=== PATIENT | male | born 1965 | race Caucasian/White ===

== ENCOUNTER 2019-03-02 21:11 | Emergency (ER) | payer OTHER ==
--- NOTE | 2019-03-02 22:20 | EDPHYS ---
Physician Documentation [facility] Name: Neil Gilliland Age: 54 yrs Sex: Male : 1965 Arrival Date: 03/02/2019 Time: 21:14 Bed 9 Private MD: ED Physician Mat Cotton HPI: 03/02 22:16 This 54 yrs old Male presents to ER via Ambulatory with complaints of Hives, tw4 Itching. 22:16 The patient's rash thought to be caused by an unknown cause. The rash is located on the tw4 body diffusely. The rash can be described as macular, urticarial. Onset: The symptoms/episode began/occurred 3 day(s) ago. Associated signs and symptoms: Pertinent positives: itching, Pertinent negatives: burning sensation, difficulty breathing, fever, nausea, Pain swelling of lips, swelling of throat, swelling of tongue, vomiting, wheezing. Severity of symptoms: in the emergency department the symptoms have improved mildly. Treatment given at home: Benadryl, oral steroids, OTC lotion/cream steroid lotion/cream. The patient has not experienced similar symptoms in the past. 22:16 The patient has not recently seen a physician. 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 - Social history:: Smoking status: Patient uses tobacco products, smokes one-half pack cigarettes per day. - Ebola Screening: : No symptoms or risks identified at this time. ROS: 22:16 Constitutional: Negative for fever, chills, and weight loss, Eyes: Negative for injury, tw4 pain, redness, and discharge, Cardiovascular: Negative for chest pain, palpitations, and edema, Respiratory: Negative for shortness of breath, cough, wheezing, and pleuritic chest pain, Abdomen/GI: Negative for abdominal pain, nausea, vomiting, diarrhea, and constipation, Back: Negative for injury and pain, MS/Extremity: Negative for injury and deformity, Neuro: Negative for headache, weakness, numbness, tingling, and seizure. 22:16 Skin: Positive for rash, Negative for abrasions, abscesses, avulsion, burn, cellulitis, diaphoresis, discoloration, ecchymosis, erythema, hematoma. Exam: 22:16 Constitutional: This is a well developed, well nourished patient who is awake, alert, tw4 and in no acute distress. Head/Face: Normocephalic, atraumatic. Chest/axilla: Normal chest wall appearance and motion. Nontender with no deformity. No lesions are appreciated. Cardiovascular: Regular rate and rhythm with a normal S1 and S2. No gallops, murmurs, or rubs. Normal PMI, no JVD. No pulse deficits. Respiratory: Lungs have equal breath sounds bilaterally, clear to auscultation and percussion. No rales, rhonchi or wheezes noted. No increased work of breathing, no retractions or nasal flaring. Abdomen/GI: Soft, non-tender, with normal bowel sounds. No distension or tympany. No guarding or rebound. No evidence of tenderness throughout. Back: No spinal tenderness. No costovertebral tenderness. Full range of motion. MS/ Extremity: Pulses equal, no cyanosis. Neurovascular intact. Full, normal range of motion. Neuro: Awake and alert, GCS 15, oriented to person, place, time, and situation. Cranial nerves II-XII grossly intact. Motor strength 5/5 in all extremities. Sensory grossly intact. Cerebellar exam normal. Normal gait. 22:16 Skin: urticaria. Vital Signs: 21:30 BP 128 / 90; Pulse 57; Resp 16; Temp 98; Pulse Ox 97% on R/A; Weight 81.65 kg (R); ak1 Height 5 ft. 9 in. (175.26 cm) (R); Pain 2/10; 21:30 Body Mass Index 26.58 (81.65 kg, 175.26 cm) ak1 MDM: 21:35 Patient medically screened. tw4 22:16 Differential diagnosis: allergic reaction. Data reviewed: vital signs, nurses notes. tw4 Counseling: I had a detailed discussion with the patient and/or guardian regarding: the historical points, exam findings, and any diagnostic results supporting the discharge/admit diagnosis. Special discussion: I discussed with the patient/guardian in detail that at this point there is no indication for admission to the hospital. It is understood, however, that if the symptoms persist or worsen the patient needs to return immediately for re-evaluation. Administered Medications: 22:29 Drug: Benadryl 25 mg Route: PO; jd3 22:30 Follow up: Response: Medication administered at discharge. jd3 22:29 Drug: Pepcid 20 mg Route: PO; jd3 22:30 Follow up: Response: Medication administered at discharge. jd3 22:30 Drug: predniSONE 60 mg Route: PO; jd3 22:30 Follow up: Response: Medication administered at discharge. jd3 Disposition: 03/02/19 22:19 Discharged to Home. Impression: allergic reaction, Urticaria, unspecified. - Condition is Stable. - Discharge Instructions: Hives, Allergies, [id number]. - Prescriptions for Medrol (Tres) 4 mg Oral Tablets, Dose Pack - take 1 tablet by ORAL route as directed - follow package instructions; 1 packet. - Medication Reconciliation Form, Thank You Letter, Antibiotic Education, Prescription Opioid Use form. - Follow up: Private Physician; When: Upon discharge from the Emergency Department; Reason: If symptoms return, Recheck today's complaints, Continuance of care. - Problem is new. - Symptoms have improved. Signatures: Emilie Colvin RN RN ak1 Ruy Garcia RN RN jd3 Mat Cotton MD MD tw4 Corrections: (The following items were deleted from the chart) 22:32 22:19 03/02/2019 22:19 Discharged to Home. Impression: allergic reaction; Urticaria, jd3 unspecified. Condition is Stable. Forms are Medication Reconciliation Form, Thank You Letter, Antibiotic Education, Prescription Opioid Use. Follow up: Private Physician; When: Upon discharge from the Emergency Department; Reason: If symptoms return, Recheck today's complaints, Continuance of care. Problem is new. Symptoms have improved. tw4
--- NOTE | 2019-03-02 22:20 | ER ---
Nurse's Notes [facility] Name: Neil Gilliland Age: 54 yrs Sex: Male : 1965 Arrival Date: 03/02/2019 Time: 21:14 Bed 9 Private MD: Diagnosis: allergic reaction;Urticaria, unspecified Presentation: 03/02 21:27 Presenting complaint: Patient states: rash to feet and abd since Saturday after ak[place] the [place]. Transition of care: patient was not received from another setting of care. Onset: The symptoms/episode began/occurred 3 day(s) ago. Anaphylaxis evaluation, no signs or symptoms of anaphylaxis were noted. Onset of symptoms is unknown. Risk Assessment: Do you want to hurt yourself or someone else? Patient reports no desire to harm self or others. Initial Sepsis Screen: Does the patient meet any 2 criteria? No. Patient's initial sepsis screen is negative. Does the patient have a suspected source of infection? No. Patient's initial sepsis screen is negative. Care prior to arrival: None. 21:27 Method Of Arrival: Ambulatory ak1 21:27 Acuity: HALI 4 ak1 Triage Assessment: 21:30 General: Appears in no apparent distress. Behavior is calm, cooperative. 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 - Social history:: Smoking status: Patient uses tobacco products, smokes one-half pack cigarettes per day. - Ebola Screening: : No symptoms or risks identified at this time. Screenin:51 Abuse screen: Denies threats or abuse. Nutritional screening: No deficits noted. jd3 Tuberculosis screening: No symptoms or risk factors identified. Fall Risk Ambulatory Aid- None/Bed Rest/Nurse Assist (0 pts). Gait- Normal/Bed Rest/Wheelchair (0 pts) Mental Status- Oriented to own ability (0 pts). Total Delgado Fall Scale indicates No Risk (0-24 pts). Assessment: 21:50 General: Appears in no apparent distress. uncomfortable, Behavior is calm, cooperative, jd3 appropriate for age. Pain: Complains of pain in right leg and left leg Quality of pain is described as burning. Neuro: Level of Consciousness is awake, alert, obeys commands, Oriented to person, place, time, situation. Cardiovascular: Capillary refill < 3 seconds Patient's skin is warm and dry. Respiratory: Airway is patent Respiratory effort is even, unlabored, Respiratory pattern is regular, symmetrical, Denies shortness of breath. GI: No signs and/or symptoms were reported involving the gastrointestinal system. : No signs and/or symptoms were reported regarding the genitourinary system. EENT: No signs and/or symptoms were reported regarding the EENT system. Derm: Skin is intact, Skin is dry, Skin is normal, Skin temperature is warm Rash noted that is itchy, on right foot, left foot, right leg and left leg. Musculoskeletal: Circulation, motion, and sensation intact. Range of motion: intact in all extremities. Vital Signs: 21:30 BP 128 / 90; Pulse 57; Resp 16; Temp 98; Pulse Ox 97% on R/A; Weight 81.65 kg (R); ak1 Height 5 ft. 9 in. (175.26 cm) (R); Pain 2/10; 21:30 Body Mass Index 26.58 (81.65 kg, 175.26 cm) ak1 ED Course: 21:14 Patient arrived in ED. cl3 21:29 Triage completed. ak1 21:30 Arm band placed on Patient placed in an exam room, on a stretcher, Patient notified of ak1 wait time. 21:35 Mat Cotton MD is Attending Physician. tw4 21:50 Ruy Garcia RN is Primary Nurse. jd3 21:51 Patient has correct armband on for positive identification. Bed in low position. Call jd3 light in reach. Side rails up X 1. Adult w/ patient. 22:31 No provider procedures requiring assistance completed. Patient did not have IV access jd3 during this emergency room visit. Administered Medications: 22:29 Drug: Benadryl 25 mg Route: PO; jd3 22:30 Follow up: Response: Medication administered at discharge. jd3 22:29 Drug: Pepcid 20 mg Route: PO; jd3 22:30 Follow up: Response: Medication administered at discharge. jd3 22:30 Drug: predniSONE 60 mg Route: PO; jd3 22:30 Follow up: Response: Medication administered at discharge. jd3 Outcome: 22:19 Discharge ordered by . tw4 22:31 Discharged to home ambulatory, with family. jd3 22:31 Condition: stable 22:31 Discharge instructions given to patient, family, Instructed on discharge instructions, follow up and referral plans. medication usage, Demonstrated understanding of instructions, follow-up care, medications, Prescriptions given X 1. 22:32 Patient left the ED. jd3 Signatures: Emilie Colvin RN RN ak1 Ruy Garcia RN RN Mat Rey MD MD tw4 Conchis Shelton cl3
[2019-03-02] MEDS ORDERED: DIPHENHYDRAMINE 25 MG TAB/CAP ONE (22:23)
[2019-03-02] MEDS ORDERED: predniSONE 20 MG TAB ONE (22:23)
[2019-03-02] MEDS ORDERED: FAMOTIDINE 20 MG TAB ONE (22:23)
[2019-03-03 00:48] VITALS: BP 128/90; TEMP 98; O2SAT 97
== END 2019-03-02 22:32 | disposition home or self-care (01) ==
LOC: ER 21:11
DX: L50.9 Urticaria, unspecified (principal); F17.210 Nicotine dependence, cigarettes, uncomplicated; Z88.0 Allergy status to penicillin; Z88.5 Allergy status to narcotic agent; Z88.8 Allergy status to other drugs, medicaments and biological substances; Z85.828 Personal history of other malignant neoplasm of skin
CPT/HCPCS: 99283; J7512

== ENCOUNTER 2019-03-05 20:43 | Emergency (ER) | payer OTHER, SELFPAY ==
[2019-03-05] MEDS ORDERED: NA CHLORIDE 0.9% 500 ML ONE (21:25)
[2019-03-05 21:39] LABS: Absolute Lymphocytes (CBC) 2.4 K/uL (0.7-4.9); Basophils % 0.8 % (0-1.3); Hematocrit 44.6 % (39.6-49.0); Lymphocytes % 33.5 % (15.3-44.8); MPV 8.5 fL (7.6-11.3); Protime INR 0.95
[2019-03-05 21:59] LABS: ALT/SGPT 32 U/L (12-78); AST/SGOT 24 U/L (15-37); Albumin 3.7 g/dL (3.4-5.0); Alkaline Phosphatase 63 U/L (45-117); BUN Blood Urea Nitrogen 12 mg/dL (7-18); Bicarbonate 27 mmol/L (21-32); Bilirubin Direct 0.1 mg/dL (0-0.2); Bilirubin Total 0.3 mg/dL (0.2-1.0); Glucose Level 101 mg/dL (74-106); Lipase 170 U/L (73-393); Magnesium 2.1 mg/dL (1.8-2.4); NT PRO-BNP 287 pg/mL (<125); Potassium 3.8 mmol/L (3.5-5.1); Protein, Total 6.8 g/dL (6.4-8.2); Sodium Level 143 mmol/L (136-145); Troponin (Emerg Dept Use Only) < 0.02 ng/mL (0.0-0.045)
[2019-03-05 22:46] LABS: Urine Blood NEGATIVE (NEG); Urine Glucose NEGATIVE (NEG); Urine Protein NEGATIVE (NEG); Urine pH 6.5 (5.0-7.0)
[2019-03-05] MEDS ORDERED: KETOROLAC 30 MG/ML INJ ONE (23:01)
--- NOTE | 2019-03-06 00:22 | ER ---
Nurse's Notes [facility] Name: Neil Gilliland Age: 54 yrs Sex: Male : 1965 Arrival Date: 03/05/2019 Time: 20:47 Bed 25 Private MD: Diagnosis: Strain of muscle and tendon of back wall of thorax;Strain of muscle and tendon of front wall of thorax;Tobacco abuse counseling;Tobacco use Presentation: 03/05 20:50 Presenting complaint: Patient states: Right sided chest pain and back that started an aj1 hour ago. Denies N/V. Reports SOB, non-productive cough. Denies fever. Transition of care: patient was not received from another setting of care. Onset of symptoms was March 05, 2019 at 20:00. Risk Assessment: Do you want to hurt yourself or someone else? Patient reports no desire to harm self or others. Initial Sepsis Screen: Does the patient meet any 2 criteria? No. Patient's initial sepsis screen is negative. Does the patient have a suspected source of infection? No. Patient's initial sepsis screen is negative. Care prior to arrival: None. 20:50 Method Of Arrival: Ambulatory aj1 20:50 Acuity: HALI 3 aj1 Triage Assessment: 20:52 General: Appears in no apparent distress. uncomfortable, Behavior is calm, cooperative, aj1 appropriate for age. Pain: Complains of pain in back and anterior aspect of right upper chest Pain currently is 7 out of 10 on a pain scale. Neuro: Level of Consciousness is awake, alert, obeys commands. Cardiovascular: Patient's skin is warm and dry. Respiratory: Airway is patent Respiratory effort is even, unlabored, Respiratory pattern is regular, symmetrical. 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 - Social history:: Smoking status: Patient uses tobacco products, smokes one-half pack cigarettes per day. - Ebola Screening: : Patient denies travel to an Ebola-affected area in the 21 days before illness onset. - Family history:: not pertinent. Screenin:14 Abuse screen: Denies threats or abuse. Denies injuries from another. Nutritional ca1 screening: No deficits noted. Tuberculosis screening: No symptoms or risk factors identified. Fall Risk IV access (20 points). Assessment: 21:14 General: Appears in no apparent distress. comfortable, Behavior is calm, cooperative, ca1 appropriate for age. Pain: Complains of pain in anterior aspect of right upper chest Pain radiates to right subscapular area Pain currently is 8 out of 10 on a pain scale. Quality of pain is described as sharp, stabbing, Pain began 1 hour ago. Is continuous. Neuro: Level of Consciousness is awake, alert, obeys commands, Oriented to person, place, time, situation, Appropriate for age. Cardiovascular: Heart tones S1 S2 present Capillary refill < 3 seconds Patient's skin is warm and dry. Rhythm is sinus bradycardia. Respiratory: Reports shortness of breath on exertion cough that is non-productive, Airway is patent Respiratory effort is even, unlabored, Respiratory pattern is regular, symmetrical, Breath sounds are clear bilaterally. GI: Abdomen is flat, non-distended, Bowel sounds present X 4 quads. Abd is soft and non tender X 4 quads. : No deficits noted. No signs and/or symptoms were reported regarding the genitourinary system. EENT: No deficits noted. No signs and/or symptoms were reported regarding the EENT system. Derm: Skin is intact, is healthy with good turgor, Skin is pink, warm \T\ dry. Musculoskeletal: Circulation, motion, and sensation intact. Capillary refill < 3 seconds, Range of motion: intact in all extremities. 22:04 Reassessment: Patient appears in no apparent distress at this time. Patient and/or ca1 family updated on plan of care and expected duration. Pain level reassessed. Patient is alert, oriented x 3, equal unlabored respirations, skin warm/dry/pink. 23:24 Reassessment: PATIENT CAME BACK FROM CT SCAN. AWAITING RESULT. PATIENT UPDATED WITH rv PLAN OF CARE. 03/06 00:30 Reassessment: Patient appears in no apparent distress at this time. Patient and/or rv family updated on plan of care and expected duration. Pain level reassessed. Patient is alert, oriented x 3, equal unlabored respirations, skin warm/dry/pink. REPEAT EKG AND TROPONIN IS DONE. AWAITING RESULT. PATIENT AND FAMILY UPDATED ON PLAN OF CARE. 01:19 Reassessment: Patient appears in no apparent distress at this time. Patient and/or jb4 family updated on plan of care and expected duration. Pain level reassessed. Patient is alert, oriented x 3, equal unlabored respirations, skin warm/dry/pink. Provider at the bedside explaining test results and further plan of care. PT verbalized understanding of d/c and follow up instructions. Ambulated out of ED with a steady gait. Patient states feeling better. Vital Signs: 03/05 20:52 BP 144 / 97; Pulse 71; Resp 18; Temp 97.7; Pulse Ox 98% on R/A; Weight 81.65 kg (R); aj1 Height 5 ft. 9 in. (175.26 cm) (R); Pain 7/10; 22:04 BP 132 / 81; Pulse 48; Resp 17 S; Pulse Ox 100% on R/A; ca1 23:00 BP 149 / 96; Pulse 57; Resp 15; Pulse Ox 100% on R/A; rv 23:23 BP 154 / 92; Pulse 52; Resp 14; Pulse Ox 99% on R/A; rv 03/06 00:00 BP 130 / 80; Pulse 52; Resp 14; Pulse Ox 99% ; rv 00:54 BP 127 / 88; Pulse 57; Resp 15; Pulse Ox 99% ; rv 03/05 20:52 Body Mass Index 26.58 (81.65 kg, 175.26 cm) [facility] ED Course: 03/05 20:47 Patient arrived in ED. mr 20:51 Triage completed. aj1 20:52 Arm band placed on Patient placed in an exam room. aj1 21:06 Laurel Perez, RN is Primary Nurse. ca1 21:14 Patient has correct armband on for positive identification. Bed in low position. Call ca1 light in reach. Side rails up X2. court monitor on. Pulse ox on. NIBP on. Warm blanket given. 21:14 No provider procedures requiring assistance completed. Inserted saline lock: 20 gauge ca1 in right antecubital area, using aseptic technique. Blood collected. 21:21 Catrachito Rich MD is Attending Physician. jaiden 21:58 XRAY Chest (1 view) In Process Unspecified. EDMS 23:20 CT completed. Patient tolerated procedure well. Patient moved to CT via stretcher. Patient moved back from CT. 23:29 CT Aorta for Dissection In Process Unspecified. EDMS 09 00:17 Kranthi Polanco MD is Referral Physician. jaiden 00:56 Troponin (emerg Dept Use Only): 1230am Sent. rv 00:57 Report given to NIMISHA SIGALA. rv 01:19 IV discontinued, intact, bleeding controlled, No redness/swelling at site. Pressure jb4 dressing applied. Administered Medications: 03/05 21:28 Drug: NS 0.9% 500 ml Route: IV; Rate: bolus; Site: left antecubital; ca1 23:22 Follow up: IV Status: Completed infusion rv 23:00 Drug: TORadol 30 mg Route: IVP; Site: left antecubital; rv 09 00:57 Follow up: Response: No adverse reaction; Pain is decreased rv Outcome: 00:17 Discharge ordered by . jaiden 01:19 Discharged to home ambulatory, with family. jb4 01:19 Condition: stable 01:19 Discharge instructions given to patient, family, Instructed on discharge instructions, follow up and referral plans. medication usage, Demonstrated understanding of instructions, follow-up care, medications, Prescriptions given X 3. 01:20 Patient left the ED. jb4 Signatures: Dispatcher [employer] [facility] Marium Laboy, RN RN aj1 Catrachito Rich MD MD cha Rivera, Mary mr HerreraJaison Neil Molina RN RN jb4 Andrew Ayala RN RN rv Laurel Perez RN RN ca1
--- NOTE | 2019-03-06 00:25 | EDPHYS ---
Physician Documentation [facility] Name: Neil Gilliland Age: 54 yrs Sex: Male : 1965 Arrival Date: 03/05/2019 Time: 20:47 Bed 25 Private MD: ED Physician Catrachito Rich HPI: 03/05 22:43 This 54 yrs old Male presents to ER via Ambulatory with complaints of Right jaiden side pain. 22:43 The patient or guardian reports chest pain that is located primarily in the anterior jaiden chest wall, right. Onset: this morning, today. The pain radiates to back. Associated signs and symptoms: The patient has no apparent associated signs or symptoms. The chest pain is described as sharp. Modifying factors: The symptoms are alleviated by remaining still, the symptoms are aggravated by cough, deep breath, movement, palpation of area, twisting torso. Severity of pain: At its worst the pain was mild moderate in the emergency department the pain is unchanged. The patient has not experienced similar symptoms in the past. 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 - Social history:: Smoking status: Patient uses tobacco products, smokes one-half pack cigarettes per day. - Ebola Screening: : Patient denies travel to an Ebola-affected area in the 21 days before illness onset. - Family history:: not pertinent. ROS: 22:43 Constitutional: Negative for fever, chills, and weight loss, Eyes: Negative for injury, jaiden pain, redness, and discharge, ENT: Negative for injury, pain, and discharge, Neck: Negative for injury, pain, and swelling, Respiratory: Negative for shortness of breath, cough, wheezing, and pleuritic chest pain, Abdomen/GI: Negative for abdominal pain, nausea, vomiting, diarrhea, and constipation, Back: Negative for injury and pain, : Negative for injury, bleeding, discharge, and swelling, MS/Extremity: Negative for injury and deformity, Skin: Negative for injury, rash, and discoloration, Neuro: Negative for headache, weakness, numbness, tingling, and seizure, Psych: Negative for depression, anxiety, suicide ideation, homicidal ideation, and hallucinations, Allergy/Immunology: Negative for hives, rash, and allergies, Endocrine: Negative for neck swelling, polydipsia, polyuria, polyphagia, and marked weight changes, Hematologic/Lymphatic: Negative for swollen nodes, abnormal bleeding, and unusual bruising. 22:43 Cardiovascular: Positive for chest pain, of the right clavicle, anterior aspect of right upper chest and right breast. Exam: 22:43 Constitutional: This is a well developed, well nourished patient who is awake, alert, jaiden and in no acute distress. Head/Face: Normocephalic, atraumatic. Eyes: Pupils equal round and reactive to light, extra-ocular motions intact. Lids and lashes normal. Conjunctiva and sclera are non-icteric and not injected. Cornea within normal limits. Periorbital areas with no swelling, redness, or edema. ENT: Nares patent. No nasal discharge, no septal abnormalities noted. Tympanic membranes are normal and external auditory canals are clear. Oropharynx with no redness, swelling, or masses, exudates, or evidence of obstruction, uvula midline. Mucous membranes moist. Neck: Trachea midline, no thyromegaly or masses palpated, and no cervical lymphadenopathy. Supple, full range of motion without nuchal rigidity, or vertebral point tenderness. No Meningismus. Cardiovascular: Regular rate and rhythm with a normal S1 and S2. No gallops, murmurs, or rubs. Normal PMI, no JVD. No pulse deficits. Respiratory: Lungs have equal breath sounds bilaterally, clear to auscultation and percussion. No rales, rhonchi or wheezes noted. No increased work of breathing, no retractions or nasal flaring. Abdomen/GI: Soft, non-tender, with normal bowel sounds. No distension or tympany. No guarding or rebound. No evidence of tenderness throughout. Back: No spinal tenderness. No costovertebral tenderness. Full range of motion. Skin: Warm, dry with normal turgor. Normal color with no rashes, no lesions, and no evidence of cellulitis. MS/ Extremity: Pulses equal, no cyanosis. Neurovascular intact. Full, normal range of motion. Neuro: Awake and alert, GCS 15, oriented to person, place, time, and situation. Cranial nerves II-XII grossly intact. Motor strength 5/5 in all extremities. Sensory grossly intact. Cerebellar exam normal. Normal gait. Psych: Awake, alert, with orientation to person, place and time. Behavior, mood, and affect are within normal limits. 22:43 Chest/axilla: Inspection: normal, Palpation: tenderness, that is mild, that is moderate, of the right supraclavicular area, right clavicle, right lateral anterior chest and right lateral posterior chest. Vital Signs: 20:52 BP 144 / 97; Pulse 71; Resp 18; Temp 97.7; Pulse Ox 98% on R/A; Weight 81.65 kg (R); aj1 Height 5 ft. 9 in. (175.26 cm) (R); Pain 7/10; 22:04 BP 132 / 81; Pulse 48; Resp 17 S; Pulse Ox 100% on R/A; ca1 23:00 BP 149 / 96; Pulse 57; Resp 15; Pulse Ox 100% on R/A; rv 23:23 BP 154 / 92; Pulse 52; Resp 14; Pulse Ox 99% on R/A; rv 03/06 00:00 BP 130 / 80; Pulse 52; Resp 14; Pulse Ox 99% ; rv 00:54 BP 127 / 88; Pulse 57; Resp 15; Pulse Ox 99% ; rv 03/05 20:52 Body Mass Index 26.58 (81.65 kg, 175.26 cm) [facility] MDM: 03/05 21:21 Patient medically screened. [facility] 22:43 Data reviewed: vital signs, nurses notes, lab test result(s), EKG, radiologic studies, jaiden plain films. 03/05 21: Order name: Basic Metabolic Panel; Complete Time: 22:[address] [facility] 03/05 21:22 Order name: CBC with Diff [facility] 03/05 21:22 Order name: LFT's; Complete Time: 22:[address] [facility] 03/05 21:22 Order name: Magnesium; Complete Time: 22:[address] [facility] 03/05 21:22 Order name: NT PRO-BNP; Complete Time: 22:[address] [facility] 03/05 21: Order name: PT-INR [facility] 03/05 21:22 Order name: Troponin (emerg Dept Use Only); Complete Time: 22:[address] [facility] 03/05 21:22 Order name: XRAY Chest (1 view) [facility] 03/05 21:22 Order name: Lipase; Complete Time: 22:[address] [facility] 03/05 21:41 Order name: CBC with Automated Diff EDMS 03/05 21:41 Order name: Protime (+INR) EDMS 03/05 22:40 Order name: Urine Dipstick--Ancillary (enter results); Complete Time: 23:11 ar5 03/05 22:42 Order name: CT Aorta for Dissection [facility] 03/06 00:16 Order name: Troponin (emerg Dept Use Only): 1230am [facility] 03/05 21:22 Order name: Cardiac monitoring; Complete Time: 21:[address] [facility] 03/05 21:22 Order name: EKG - Nurse/Tech; Complete Time: 21:[address] [facility] 03/05 21:22 Order name: IV Saline Lock; Complete Time: 21:[address] [facility] 03/05 21:22 Order name: Labs collected and sent; Complete Time: 21:[address] [facility] 03/05 21:22 Order name: O2 Per Protocol; Complete Time: 21:[address] [facility] 03/05 21:22 Order name: O2 Sat Monitoring; Complete Time: 21:[address] [facility] 03/05 21:22 Order name: Urine Dipstick-Ancillary (obtain specimen); Complete Time: 23:[address] [facility] 03/06 00:16 Order name: EKG; Complete Time: 00:[address] [facility] 03/06 00:16 Order name: EKG - Nurse/Tech; Complete Time: 00:[address] [facility] Administered Medications: 21:28 Drug: NS 0.9% 500 ml Route: IV; Rate: bolus; Site: left antecubital; ca1 23:22 Follow up: IV Status: Completed infusion rv 23:00 Drug: TORadol 30 mg Route: IVP; Site: left antecubital; rv 03/06 00:57 Follow up: Response: No adverse reaction; Pain is decreased rv Disposition: 03/06/19 00:17 Discharged to Home. Impression: Strain of muscle and tendon of back wall of thorax, Strain of muscle and tendon of front wall of thorax, Tobacco abuse counseling, Tobacco use. - Condition is Stable. - Discharge Instructions: Back Pain, Adult, Steps to Quit Smoking, Smoking Hazards, Back Pain, Adult, [id number], Steps to Quit Smoking, [id number]. - Prescriptions for Ibuprofen 600 mg Oral Tablet - take 1 tablet by ORAL route every 6 hours As needed take with food; 26 tablet. Tramadol 50 mg Oral Tablet - take 1 tablet by ORAL route every 8 hours as needed; 24 tablet. Pepcid 20 mg Oral Tablet - take 1 tablet by ORAL route every 12 hours for 10 days; 20 tablet. - Medication Reconciliation Form, Thank You Letter, Antibiotic Education, Prescription Opioid Use form. - Follow up: Private Physician; When: 2 - 3 days; Reason: Recheck today's complaints, Continuance of care, Re-evaluation by your physician. Follow up: Kranthi Polanco MD; When: 2 - 3 days; Reason: Recheck today's complaints, Continuance of care, Re-evaluation by your physician. - Problem is new. - Symptoms have improved. Signatures: Dispatcher [employer] EDMarium Wang RN RN aj1 Catrachito Rich MD MD cha Bryson, James, RN RN jb4 Andrew Ayala RN RN rv Laurel Perez RN RN ca1 Corrections: (The following items were deleted from the chart) 01:20 00:17 03/06/2019 00:17 Discharged to Home. Impression: Strain of muscle and tendon of jb4 back wall of thorax; Strain of muscle and tendon of front wall of thorax; Tobacco abuse counseling; Tobacco use. Condition is Stable. Discharge Instructions: Back Pain, Adult, Steps to Quit Smoking, Smoking Hazards, Back Pain, Adult, Hvig-sy-Myiu, Steps to Quit Smoking, Wlew-at-Beux. Prescriptions for Ibuprofen 600 mg Oral Tablet - take 1 tablet by ORAL route every 6 hours As needed take with food; 26 tablet, Tramadol 50 mg Oral Tablet - take 1 tablet by ORAL route every 8 hours as needed; 24 tablet. and Forms are Medication Reconciliation Form, Thank You Letter, Antibiotic Education, Prescription Opioid Use. Follow up: Private Physician; When: 2 - 3 days; Reason: Recheck today's complaints, Continuance of care, Re-evaluation by your physician. Follow up: Kranthi Polanco; When: 2 - 3 days; Reason: Recheck today's complaints, Continuance of care, Re-evaluation by your physician. Problem is new. Symptoms have improved. jaiden
[2019-03-06 01:26] VITALS: TEMP 97.7
[2019-03-06 01:30] VITALS: O2SAT 99
[2019-03-06 01:32] VITALS: BP 127/88
--- NOTE | 2019-03-06 08:38 | RAD REPORT ---
EXAM DESCRIPTION: RAD - Chest Single View - 03/05/2019 9:54 pm CLINICAL HISTORY: Cough, right-sided chest pain COMPARISON: February 2015 TECHNIQUE: AP portable chest image was obtained 2142 hours . FINDINGS: Lung volumes are low. Minimal bilateral lung base atelectasis changes are present. No sign ificant lung parenchymal process seen. Hilar regions match prior imaging. Heart and vasculature are n ormal. No measurable pleural effusion and no pneumothorax. No acute bony abnormality seen. No acute a ortic findings suspected. IMPRESSION: Shallow inspiration film with no acute cardiopulmonary finding.
--- NOTE | 2019-03-06 09:53 | RAD REPORT ---
EXAM DESCRIPTION: CT - Angio Aorta For Dissection - 03/06/2019 4:00 am CLINICAL HISTORY: The patient is 54 years old and is Male; CHEST PAIN TECHNIQUE: Axial computed tomographic angiography images of the chest and axial computed tomography images of the abdomen, pelvis, thoracic spine and lumbar spine with intravenous contrast. This CT e xam was performed using one or more of the following dose reduction techniques: automated exposure control, adjustment of the mA and/or kV according to patient size, and/or use of iterative reconstruc tion technique. MIP reconstructed images were created and reviewed. COMPARISON: None. FINDINGS: CHEST: AORTA: No acute findings. No aortic aneurysm. No dissection. PULMONARY ARTERIES: Unremarkable as visualized. No pulmonary embolism is identified. GREAT VESSELS OF AORTIC ARCH: No acute findings. No dissection. No arterial occlusion or signi ficant stenosis. LUNGS: Dependent subsegmental atelectasis bilaterally. No focal consolidation, pleural effusion or pneumothorax. PLEURAL SPACE: See above. HEART: The heart is normal in size. No significant pericardial effusion. THYROID: Visualized thyroid is normal. ABDOMEN: LIVER: Unremarkable. No mass. GALLBLADDER AND BILE DUCTS: Contracted gallbladder. No calcified stones. No ductal dilation. PANCREAS: Unremarkable. No ductal dilation. No mass. SPLEEN: Unremarkable. No splenomegaly. ADRENALS: Unremarkable. No mass. KIDNEYS AND URETERS: Unremarkable. No hydronephrosis. No solid mass. STOMACH AND BOWEL: Unremarkable. No obstruction. No mucosal thickening. PELVIS: APPENDIX: The appendix is surgically absent. BLADDER: Bladder is decompressed. REPRODUCTIVE: Coarse calcification of the prostate. THORACIC and LUMBAR SPINE: VERTEBRAE: See below. DISCS/SPINAL CANAL/NEURAL FORAMINA: No acute findings. No spinal canal stenosis. CHEST, ABDOMEN and PELVIS: INTRAPERITONEAL SPACE: Unremarkable. No significant fluid collection. No free air. BONES/JOINTS: Mild L5-S1 degenerative disease with vacuum phenomenon and associated spondylosis re sulting in bilateral foraminal narrowing, right greater than left. No acute fracture. No dislocation. SOFT TISSUES: Unremarkable. VASCULATURE: Minimal atherosclerotic disease of the abdominal aorta. LYMPH NODES: Unremarkable. No enlarged lymph nodes. IMPRESSION: 1. No acute aortic dissection or aneurysm. 2. No pulmonary embolism. 3. No acute intrathoracic, abdominal or pelvic abnormality. Electronically signed by: Rajan Sanchez DO 03/05/2019 11:57 PM CDT Due to temporary technical issues with the PACS/Fluency reporting system, reports are being signed by the in house radiologist as a courtesy to ensure prompt reporting. The interpreting radiologist is f ully responsible for the content of the report.
--- NOTE | 2019-03-06 10:32 | EKG ---
Test Date: 2019-03-05 Test Time: 21:04:26 Dairy Processing Equipment Operator: NATALIIAT MEASUREMENT RESULTS: Intervals: Rate: 57 WY: 146 QRSD: 84 QT: 384 QTc: 373 [place]: P: 66 WY: 146 QRS: 58 T: 44 INTERPRETIVE STATEMENTS: Sinus bradycardia Otherwise normal ECG No previous ECG available for comparison Electronically Signed On 03-06-19 10:31:33 CDT by Kranthi Polanco
--- NOTE | 2019-03-06 10:32 | EKG ---
Test Date: 2019-03-06 Test Time: 00:22:23 Land Acquisition Manager: RV MEASUREMENT RESULTS: Intervals: Rate: 52 ND: 148 QRSD: 90 QT: 414 QTc: 385 [place]: P: 79 ND: 148 QRS: 83 T: 71 INTERPRETIVE STATEMENTS: Sinus bradycardia Septal infarct, age undetermined Abnormal ECG Compared to ECG 03/05/2019 21:04:26 Myocardial infarct finding now present Electronically Signed On 03-06-19 10:31:29 CDT by Kranthi Polanco
== END 2019-03-06 01:20 | disposition home or self-care (01) ==
LOC: ER 20:43
DX: S29.012A Strain of muscle and tendon of back wall of thorax, initial encounter (principal); S29.011A Strain of muscle and tendon of front wall of thorax, initial encounter; F17.210 Nicotine dependence, cigarettes, uncomplicated; Z71.6 Tobacco abuse counseling; Z88.0 Allergy status to penicillin; Z88.5 Allergy status to narcotic agent; Z88.8 Allergy status to other drugs, medicaments and biological substances; Z85.828 Personal history of other malignant neoplasm of skin; Z91.048 Other nonmedicinal substance allergy status
CPT/HCPCS: 36415; 71045; 71275; 74175; 80048; 80076; 81003; 83690; 83735; 83880; 84484; 85025; 85610; 93005; 96361; 96374; 99285; Q9967

== ENCOUNTER 2019-11-04 12:36 | Emergency (ER) | payer SELFPAY ==
--- NOTE | 2019-11-04 14:37 | RAD REPORT ---
EXAM DESCRIPTION: [place] Single View11/04/2019 2:22 pm CLINICAL HISTORY: Weakness/abdominal pain/hematuria COMPARISON: 2014 FINDINGS: The lungs appear clear of acute infiltrate. The heart is normal size IMPRESSION: No acute abnormalities displayed
[2019-11-04 14:56] LABS: Absolute Lymphocytes (CBC) 2.1 K/uL (0.7-4.9); Basophils % 1.1 % (0-1.3); Hematocrit 49.1 % (39.6-49.0); Lymphocytes % 22.9 % (15.3-44.8); MPV 8.5 fL (7.6-11.3); RBC Red Blood Cell Count 5.33 M/uL (4.33-5.43)
[2019-11-04 15:22] LABS: ALT/SGPT 35 U/L (12-78); AST/SGOT 25 U/L (15-37); Alkaline Phosphatase 60 U/L (45-117); BUN Blood Urea Nitrogen 15 mg/dL (7-18); Bicarbonate 25 mmol/L (21-32); Bilirubin Direct 0.2 mg/dL (0-0.2); Bilirubin Total 0.6 mg/dL (0.2-1.0); Glucose Level 94 mg/dL (74-106); Protein, Total 7.3 g/dL (6.4-8.2); Sodium Level 139 mmol/L (136-145); Troponin (Emerg Dept Use Only) < 0.02 ng/mL (0.0-0.045)
[2019-11-04 15:40] LABS: Urine Blood 3+ (NEG); Urine Glucose NEGATIVE (NEG); Urine Protein TRACE (NEG); Urine Specific Gravity >1.030 (1.005-1.030); Urine pH 5.5 (5.0-7.0)
--- NOTE | 2019-11-04 16:19 | RAD REPORT ---
EXAM DESCRIPTION: CT - Abdomen Pelvis W Contrast - 11/04/2019 4:07 pm CLINICAL HISTORY: Abdominal pain COMPARISON: June 2019 TECHNIQUE: Computed axial tomography of the abdomen pelvis was obtained. 100 cc Isovue-300 was admin istered intravenously. Oral contrast was not requested which limits evaluation of bowel. All CT scans are performed using dose optimization technique as appropriate and may include automated exposure control or mA/KV adjustment according to patient size. FINDINGS: The left and caudate lobes of the liver are prominent. The right globe is small. This can seen with chronic disease. Spleen, pancreas, adrenal and left kidney appear unremarkable. Small nonobstructing right renal calcu doug There is no evidence of diverticulitis. Prostate gland is mildly enlarged posterior bladder wall thickening Thickening of wall distal stomach IMPRESSION: Posterior bladder wall thickening could be secondary to inflammation or mass Mild thickening of the wall of the distal stomach could be secondary to incomplete distention or infl ammation
--- NOTE | 2019-11-04 16:24 | EDPHYS ---
Physician Documentation [facility] Name: Neil Gilliland Age: 54 yrs Sex: Male : 1965 Arrival Date: 11/04/2019 Time: 12:39 Bed 15 Private MD: ED Physician Damian Taylor HPI: 11/03 14:33 This 54 yrs old Male presents to ER via Ambulatory with complaints of General kdr Weakness, Blood in Urine. 14:33 The patient c/o stomach pain and hematuria since this morning. He has not not this kdr before. Onset: The symptoms/episode began/occurred this morning. Severity of symptoms: At their worst the symptoms were mild moderate just prior to arrival, in the emergency department the symptoms are unchanged. The patient has not experienced similar symptoms in the past. The patient has not recently seen a physician. Historical: - Allergies: 12:41 Codeine; sv 12:41 Keflex; sv 12:41 NO NARCOTICS; sv 12:41 PENICILLINS; sv 12:41 Tape; sv - PMHx: 12:41 head and neck sqam carcenomia; sv - Immunization history:: Adult Immunizations up to date. - Social history:: Smoking status: Patient reports the use of cigarette tobacco products, unknown amount. ROS: 14:33 Constitutional: Negative for fever, chills, and weight loss, Eyes: Negative for injury, kdr pain, redness, and discharge, ENT: Negative for injury, pain, and discharge, Neck: Negative for injury, pain, and swelling, Cardiovascular: Negative for chest pain, palpitations, and edema, Respiratory: Negative for shortness of breath, cough, wheezing, and pleuritic chest pain, Back: Negative for injury and pain, MS/Extremity: Negative for injury and deformity, Skin: Negative for injury, rash, and discoloration, Neuro: Negative for headache, weakness, numbness, tingling, and seizure activity. Psych: Negative for depression, anxiety, suicide ideation, homicidal ideation, and hallucinations, Allergy/Immunology: Negative for hives, rash, and allergies, Endocrine: Negative for neck swelling, polydipsia, polyuria, polyphagia, and marked weight changes, Hematologic/Lymphatic: Negative for swollen nodes, abnormal bleeding, and unusual bruising. 14:33 Abdomen/GI: Positive for abdominal pain, abdominal cramps, Negative for nausea, vomiting, and diarrhea, constipation, abdominal distension, black/tarry stool, rectal pain, rectal bleeding. 14:33 : Positive for urinary symptoms, hematuria. Exam: 14:32 ECG was reviewed by the Attending Physician. kdr 14:33 Constitutional: This is a well developed, well nourished patient who is awake, alert, kdr and in no acute distress. Head/Face: Normocephalic, atraumatic. Eyes: Pupils equal round and reactive to light, extra-ocular motions intact. Lids and lashes normal. Conjunctiva and sclera are non-icteric and not injected. Cornea within normal limits. Periorbital areas with no swelling, redness, or edema. Neck: Trachea midline, no thyromegaly or masses palpated, and no cervical lymphadenopathy. Supple, full range of motion without nuchal rigidity, or vertebral point tenderness. No Meningismus. Chest/axilla: Normal chest wall appearance and motion. Nontender with no deformity. No lesions are appreciated. Cardiovascular: Regular rate and rhythm with a normal S1 and S2. No gallops, murmurs, or rubs. Normal PMI, no JVD. No pulse deficits. Respiratory: Lungs have equal breath sounds bilaterally, clear to auscultation and percussion. No rales, rhonchi or wheezes noted. No increased work of breathing, no retractions or nasal flaring. Back: No spinal tenderness. No costovertebral tenderness. Full range of motion. Skin: Warm, dry with normal turgor. Normal color with no rashes, no lesions, and no evidence of cellulitis. MS/ Extremity: Pulses equal, no cyanosis. Neurovascular intact. Full, normal range of motion. Neuro: Awake and alert, GCS 15, oriented to person, place, time, and situation. Cranial nerves II-XII grossly intact. Motor strength 5/5 in all extremities. Sensory grossly intact. Cerebellar exam normal. Normal gait. Psych: Awake, alert, with orientation to person, place and time. Behavior, mood, and affect are within normal limits. 14:33 Abdomen/GI: Inspection: abdomen appears normal, Bowel sounds: normal, in all quadrants, active, Palpation: soft, mild abdominal tenderness, in the suprapubic area, right lower quadrant and left lower quadrant. Vital Signs: 12:41 BP 163 / 106; Pulse 65; Resp 16; Temp 99; Pulse Ox 98% ; Weight 86.18 kg; Height 5 ft. sv 9 in. (175.26 cm); 14:58 BP 151 / 104; Pulse 53; Resp 16; Pulse Ox 98% ; bp 16:42 BP 163 / 95; Pulse 57; Resp 16; Temp 98; Pulse Ox 98% ; bp 12:41 Body Mass Index 28.06 (86.18 kg, 175.26 cm) sv MDM: 14:33 Data reviewed: vital signs, nurses notes, lab test result(s), radiologic studies. kdr Counseling: I had a detailed discussion with the patient and/or guardian regarding: the historical points, exam findings, and any diagnostic results supporting the discharge/admit diagnosis, lab results, radiology results. 16:23 Patient medically screened. kdr 11/03 14:06 Order name: Basic Metabolic Panel; Complete Time: 15:48 kdr 11/03 14:06 Order name: CBC with Diff; Complete Time: 15:48 kdr 11/03 14:06 Order name: LFT's; Complete Time: 15:48 kdr 11/03 14:06 Order name: Magnesium; Complete Time: 15:48 kdr 11/03 14:06 Order name: Urine Dipstick-Ancillary (obtain specimen); Complete Time: 14:59 kdr 11/03 14:06 Order name: Cardiac monitoring; Complete Time: 14:12 kdr 11/03 14:06 Order name: Troponin (emerg Dept Use Only); Complete Time: 15:48 kdr 11/03 14:06 Order name: XRAY Chest (1 view); Complete Time: 15:48 kdr 11/03 14:06 Order name: EKG; Complete Time: 14:07 kdr 11/03 14:15 Order name: Urine Dipstick--Ancillary (enter results); Complete Time: 15:48 em1 11/03 15:48 Order name: CT Abd/Pelvis - IV Contrast Only; Complete Time: 16:22 kdr 11/03 14:06 Order name: IV Saline Lock; Complete Time: 14:59 kdr 11/03 14:06 Order name: Labs collected and sent; Complete Time: 14:59 kdr 11/03 14:06 Order name: O2 Per Protocol; Complete Time: 14:59 kdr 11/03 14:06 Order name: O2 Sat Monitoring; Complete Time: 14:59 kdr EC:32 Rate is 54 beats/min. Rhythm is regular, Normal Sinus Rhythm with No ectopy. QRS [place] kdr is Normal. ME interval is normal. QRS interval is normal. Clinical impression: Sinus bradycardia. Administered Medications: 16:30 Drug: Cipro 500 mg Route: PO; bp 16:41 Follow up: Response: No adverse reaction bp Disposition: 11/04/19 16:23 Discharged to Home. Impression: Hematuria, Cystitis, unspecified with hematuria. - Condition is Stable. - Discharge Instructions: Urinary Tract Infection, Adult, Interstitial Cystitis. - Prescriptions for Cipro 500 mg Oral Tablet - take 1 tablet by ORAL route every 12 hours for 10 days; 20 tablet. - Medication Reconciliation Form, Thank You Letter, Antibiotic Education form. - Follow up: Private Physician; When: 2 - 3 days; Reason: If symptoms return, Further diagnostic work-up, Recheck today's complaints, Continuance of care, Re-evaluation by your physician. - Problem is new. - Symptoms have improved. Signatures: Dispatcher [employer] [facility] Laura Jay, RN RN sv Damian Taylor MD MD kdr Alan Navarro RN RN bp Corrections: (The following items were deleted from the chart) 14:16 14:07 PROBNP+C.LAB.BRZ ordered. [facility] EDAZ 14:16 14:07 PROTIME (+INR)+COAG.LAB.BRZ ordered. [facility] EDMS 16:45 16:23 11/04/2019 16:23 Discharged to Home. Impression: Hematuria; Cystitis, unspecified bp with hematuria. Condition is Stable. Forms are Medication Reconciliation Form, Thank You Letter, Antibiotic Education, Prescription Opioid Use. Follow up: Private Physician; When: 2 - 3 days; Reason: If symptoms return, Further diagnostic work-up, Recheck today's complaints, Continuance of care, Re-evaluation by your physician. Problem is new. Symptoms have improved. kdr
--- NOTE | 2019-11-04 16:24 | ER ---
Nurse's Notes [facility] Name: Neil Gilliland Age: 54 yrs Sex: Male : 1965 Arrival Date: 11/04/2019 Time: 12:39 Bed 15 Private MD: Diagnosis: Hematuria;Cystitis, unspecified with hematuria Presentation: 11/03 12:41 Chief complaint: Patient states: generalized weakness, hematuria started this morning. sv Coronavirus screen: Proceed with normal triage. Patient denies a cough. Patient denies shortness of breath or difficulty breathing. Patient denies measured and/or subjective temperature greater than 100.4F prior to today's visit. Patient denies travel on a cruise ship or to a country the [facility] currently lists as an affected area. Patient denies contact with known and/or suspected case of COVID-19. Ebola Screen: No symptoms or risks identified at this time. Risk Assessment: Do you want to hurt yourself or someone else? Patient reports no desire to harm self or others. Onset of symptoms was November 04, 2019. 12:41 Method Of Arrival: Ambulatory sv 12:41 Initial Sepsis Screen: Does the patient meet any 2 criteria? No. Patient's initial sv sepsis screen is negative. Does the patient have a suspected source of infection? No. Patient's initial sepsis screen is negative. 12:41 Acuity: HALI 2 sv Triage Assessment: 12:45 General: Appears in no apparent distress. comfortable, Behavior is cooperative, bp appropriate for age, anxious. Pain: Denies pain. EENT: No deficits noted. Neuro: No deficits noted. Cardiovascular: Rhythm is sinus rhythm. Respiratory: No deficits noted. GI: No signs and/or symptoms were reported involving the gastrointestinal system. : No signs and/or symptoms were reported regarding the genitourinary system. Derm: No deficits noted. Musculoskeletal: No deficits noted. Historical: - Allergies: 12:41 Codeine; sv 12:41 Keflex; sv 12:41 NO NARCOTICS; sv 12:41 PENICILLINS; sv 12:41 Tape; sv - PMHx: 12:41 head and neck sqam carcenomia; sv - Immunization history:: Adult Immunizations up to date. - Social history:: Smoking status: Patient reports the use of cigarette tobacco products, unknown amount. Screenin:00 Abuse screen: Denies threats or abuse. Denies injuries from another. Nutritional bp screening: No deficits noted. Tuberculosis screening: No symptoms or risk factors identified. Fall Risk None identified. Assessment: 13:00 General: SEE TRIAGE NOTE. bp 14:58 Reassessment: ALL CURRENT ORDERS IN PROCESS. VS STABLE ON MONITOR. bp 16:42 Reassessment: PT D/C HOME AMBULATORY, DX WITH CYSTITIS. bp Vital Signs: 12:41 BP 163 / 106; Pulse 65; Resp 16; Temp 99; Pulse Ox 98% ; Weight 86.18 kg; Height 5 ft. sv 9 in. (175.26 cm); 14:58 BP 151 / 104; Pulse 53; Resp 16; Pulse Ox 98% ; bp 16:42 BP 163 / 95; Pulse 57; Resp 16; Temp 98; Pulse Ox 98% ; bp 12:41 Body Mass Index 28.06 (86.18 kg, 175.26 cm) sv ED Course: 12:39 Patient arrived in ED. ag5 12:40 Arm band placed on. sv 12:41 Triage completed. sv 13:00 Patient has correct armband on for positive identification. Bed in low position. Call bp light in reach. Side rails up X2. 13:09 Damian Taylor MD is Attending Physician. kdr 13:57 Alan Navarro, ZAKIYA is Primary Nurse. bp 14:23 XRAY Chest (1 view) In Process Unspecified. EDMS 14:50 Inserted saline lock: 22 gauge in right forearm, using aseptic technique. Blood bp collected. 16:07 CT Abd/Pelvis - IV Contrast Only In Process Unspecified. EDMS 16:42 No provider procedures requiring assistance completed. IV discontinued, intact, bp bleeding controlled, No redness/swelling at site. Pressure dressing applied. Administered Medications: 16:30 Drug: Cipro 500 mg Route: PO; bp 16:41 Follow up: Response: No adverse reaction bp Outcome: 16:23 Discharge ordered by . kdr 16:42 Discharged to home ambulatory. bp 16:42 Condition: stable 16:42 Discharge instructions given to patient, Instructed on discharge instructions, follow up and referral plans. medication usage, Demonstrated understanding of instructions, follow-up care, medications, Prescriptions given X 1. 16:45 Patient left the ED. bp Signatures: Dispatcher [employer] EDMS Misty, LauraZAKIYA lubin RN, Kevin, MD MD kdr Peltier, Brian, RN RN Dee Rawls ag5 Corrections: (The following items were deleted from the chart) 12:43 12:41 Acuity: HALI 3 sv polo
[2019-11-04] MEDS ORDERED: CIPROFLOXACIN HCL 500 MG TAB ONE (16:34)
[2019-11-04 16:55] VITALS: O2SAT 98
[2019-11-04 16:58] VITALS: BP 163/95; TEMP 98
--- NOTE | 2019-11-05 06:30 | EKG ---
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
== END 2019-11-04 16:45 | disposition home or self-care (01) ==
LOC: ER 12:36
DX: N30.91 Cystitis, unspecified with hematuria (principal); Z72.0 Tobacco use; Z88.0 Allergy status to penicillin; Z88.1 Allergy status to other antibiotic agents; Z88.5 Allergy status to narcotic agent
CPT/HCPCS: 36415; 71045; 74177; 80048; 80076; 81003; 83735; 84484; 85025; 93005; 99284; Q9967

== ENCOUNTER 2020-04-22 10:26 | Emergency (ER) | payer SELFPAY ==
[2020-04-22] MEDS ORDERED: METHYLPREDNISOLONE 125 MG INJ ONE (11:17)
[2020-04-22] MEDS ORDERED: IPRATROPIUM BROM 0.5MG/2.5ML ONE ×2 (11:17→12:56)
[2020-04-22] MEDS ORDERED: ALBUTEROL 2.5 MG/3 ML NEB SOL ONE ×2 (11:17→12:56)
--- NOTE | 2020-04-22 11:21 | RAD REPORT ---
EXAM DESCRIPTION: RAD - Chest Single View - 04/22/2020 11:11 am CLINICAL HISTORY: CHEST PAIN Chest pain. COMPARISON: Chest Single View dated 11/04/2019; Chest Single View dated 03/05/2019; CHEST PA AND LAT 2 VIEW dated 02/23/2015 FINDINGS: Portable technique limits examination quality. The lungs are grossly clear. The heart is normal in size. No displaced fractures. IMPRESSION: No acute intrathoracic process suspected.
[2020-04-22 11:28] LABS: Basophils % 0.7 % (0-1.3); Hematocrit 47.5 % (39.6-49.0); Lymphocytes % 21.8 % (15.3-44.8); MPV 8.6 fL (7.6-11.3); Protime INR 0.97; RBC Red Blood Cell Count 5.17 M/uL (4.33-5.43)
[2020-04-22 11:39] LABS: ALT/SGPT 35 U/L (12-78); AST/SGOT 26 U/L (15-37); Alkaline Phosphatase 66 U/L (45-117); BUN Blood Urea Nitrogen 14 mg/dL (7-18); Bicarbonate 26 mmol/L (21-32); Bilirubin Direct < 0.1 mg/dL (0-0.2); Bilirubin Total 0.6 mg/dL (0.2-1.0); Glucose Level 102 mg/dL (74-106); Magnesium 2.1 mg/dL (1.8-2.4); NT PRO-BNP 111 pg/mL (<125); Potassium 3.9 mmol/L (3.5-5.1); Protein, Total 7.3 g/dL (6.4-8.2); Sodium Level 140 mmol/L (136-145); Troponin (Emerg Dept Use Only) < 0.02 ng/mL (0.0-0.045)
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
[2020-04-22 14:56] VITALS: TEMP 98.7
[2020-04-22 15:02] VITALS: O2SAT 99
[2020-04-22 15:03] VITALS: BP 147/83
== END 2020-04-22 14:32 | disposition home or self-care (01) ==
LOC: ER 10:26
DX: T65.891A Toxic effect of other specified substances, accidental (unintentional), initial encounter (principal); J68.0 Bronchitis and pneumonitis due to chemicals, gases, fumes and vapors; Z88.0 Allergy status to penicillin; Z88.1 Allergy status to other antibiotic agents; Z88.5 Allergy status to narcotic agent; Z85.828 Personal history of other malignant neoplasm of skin; Z91.048 Other nonmedicinal substance allergy status
CPT/HCPCS: 36415; 71045; 80048; 80076; 83735; 83880; 84484; 85025; 85610; 93005; 96374; 99284; J2930